=== PATIENT | male | born 1965 | race Caucasian/White ===

== ENCOUNTER → 2018-09-03 | Outpatient (CLI) | payer OTHER ==
--- NOTE | 2018-09-03 11:03 | PCVCIMAG ---
EXAM: ABDOMINAL ULTRASOUND COMPLETE INDICATION: Abdominal pain FINDINGS: Gallbladder: No gallstones. No wall thickening or abnormal pericholecystic fluid. Liver: Normal in size measuring 19.4 cm in length. No focal masses. Bile ducts: No intra or extra hepatic bile duct dilatation. The common bile duct measures 2.5 mm. Pancreas: Unremarkable where seen. Spleen: Normal in size measuring 13.1 cm in greatest dimension. No focal masses. Right kidney: No hydronephrosis. Length measures 13.6 cm. Left kidney: No hydronephrosis. Length measures 11.2 cm. Note is made the left kidney is located in the pelvis. Inferior vena cava: Normal in size where seen. Aorta: Normal in caliber where seen. IMPRESSION: No acute process seen in the abdomen. Left pelvic kidney. LOC:[id number]
--- NOTE | 2018-09-09 09:57 | PCVCIMAG ---
APPROVED REPORT Study performed: 09/03/2018 11:08:21 Exam: Stress Echocardiogram Indication: CAD , Hypertension, ETOH Patient Location: Echo lab Stress Nurse: Tamiko Quispe RN Status: routine Ht: 5 ft 8 in HR: 70 bpm BP: 130/86 mmHg Rhythm: NSR Medical History Medical History: Diabetes, Hyperlipidemia Procedure The patient underwent an Exercise Stress Test using the Guy Protocol. Blood pressure, heart rate, and EKG were monitored. An Echocardiogram was performed by science technicians in four stages in quad fashion. At peak stress, four selected images were obtained and placed side by side with resting images for comparison. Stress Test Details Stress Test: Exercise stress testing was performed using a Guy protocol. HR Resting HR: 70 bpmMax Heart Rate (APMHR): 165 bpm Max HR Achieved: 148 bpmTarget HR (85% APMHR): 140 bpm % of APMHR: 89 Recovery HR: 87 bpm HR response to stress: Normal HR response to stress BP Resting BP: 130/86 mmHg Max BP: 168/90 mmHg Recovery BP: 138/72 mmHg BP response to stress: Normal blood pressure response to stress. ECG Resting ECG: Sinus Rhythm Stress ECG: Sinus Rhythm ST Change: ST-T wave depression consistent with known RCA occlusion Maximum ST Deviation: 2.65 mm Arrhythmia: VPC's Recovery ECG: Sinus Rhythm Recovery ST Change: Significant ST-T wave depression consistent with known RCA occlusion Recovery ST Deviation: 0.9 mm Recovery Arrhythmia: VPC Clinical Reason for Termination: Maximal effort, Dyspnea Exercise duration: 7 min 10 sec Highest Stage Achieved: Stage 3: 3.4 mph at 14% grade. Exercise capacity: 10.10 METs Overall Exercise Capacity for Age: Normal Stress ECG Conclusion ECG: Ischemic Clinical: Ischemic Pre-Stress Echo The resting Echocardiogram showed normal left ventricular contractility with an estimated Ejection Fraction of about 50%. Distal septum and inferior wall hypokinesis consistent with known RCA occlusion. Post-Stress Echo The stress Echocardiogram showed normal left ventricular contractility with an estimated Ejection Fraction of about 50-55%. Septal and inferior wall remain hypokinetic. No new regional wall motion abnormalities. Conclusion Clinical Response: Ischemic Exercise Capacity: Average Stress ECG Response: Ischemic Stress Echo Images: Ischemic Other Information Study Quality: Adequate
== END | disposition home or self-care (01) ==
LOC: PCVCIMAG 10:00
PROVIDERS: ATTEND Internal Medicine Cardiovascular Disease
DX: R10.9 Unspecified abdominal pain (principal); F10.10 Alcohol abuse, uncomplicated
CPT/HCPCS: 76700; 93325; 93351

== ENCOUNTER → 2018-09-23 | Outpatient (CLI) | payer OTHER ==
--- NOTE | 2018-09-23 14:14 | PCVCIMAG ---
APPROVED REPORT Indications Stenosis PRE OP Risk Factors CAD Doppler Spectral Velocity Analysis PSV / EDVPSV / EDV ECA (R) 104 / 9 cm/sECA (L) 81 / 16 cm/s dICA (R) 46 / 14 cm/sdICA (L) 60 / 22 cm/s Melanie (R) 61 / 22 cm/smICA (L) 62 / 29 cm/s pICA (R) 64 / 22 cm/spICA (L) 56 / 18 cm/s Bulb (R) 52 / 17 cm/sBulb (L) 46 / 13 cm/s dCCA (R) 60 / 16 cm/sdCCA (L) 76 / 19 cm/s mCCA (R) 79 / 21 cm/smCCA (L) 78 / 22 cm/s Vert (R) 62 / 23 cm/sVert (L) 27 / 10 cm/s ICA/CCA 0.82 ICA/CCA 0.80 Basic Measurements Blood Pressure: Pulses: Right Left RightLeft Brachial(Sitting) 142/46ijAe762/84mmHgTemporal Real Time B-Mode Imaging Vert. (R)AntegradeVert. (L)Antegrade Findings RIGHT CAROTID: The carotid bulb has moderate plaque. The proximal internal carotid artery shows <40% stenosis. The common carotid artery shows no significant stenosis. The external carotid artery shows no significant stenosis. LEFT CAROTID: The carotid bulb has moderate plaque. The proximal internal carotid artery shows <40% stenosis. The common carotid artery shows no significant stenosis. The external carotid artery shows no significant stenosis. Conclusion <40% stenosis of the right internal carotid artery with moderate plaque. <40% stenosis of the left internal carotid artery with moderate plaque. No change since December 2015 study.
--- NOTE | 2018-09-23 14:55 | PCVCIMAG ---
APPROVED REPORT Study performed: 09/23/2018 13:39:35 EXAM: Comprehensive 2D, Doppler, and color-flow Echocardiogram Patient Location: Echo lab Status: routine BSA: 2.17 HR: 72 bpmBP: 142/90 mmHg Rhythm: NSR w/ PVCs Other Information Study Quality: Adequate Indications Abnormal ECG Pre-Op CAD ischemic cardiomyopathy 2D Dimensions IVSd: 11.26 (7-11mm) LVDd: 49.18 mm PWd: 8.86 (7-11mm)Ascending Ao: 34.50 (22-36mm) LVDs: 32.08 (25-40mm) Left Atrium: 47.31 (27-40mm) Aortic Root: 33.39 mm LV Single Plane 4CH: 52.20 % LV Single Plane 2CH: 53.79 % Biplane EF: 52.9 % Volumes Left Atrial Volume (Systole) Single Plane 4CH: 75.23 mLSingle Plane 2CH: 112.06 mL Aortic Valve AoV Peak Jerry.: 1.47 m/s AO Peak Gr.: 8.68 mmHgLVOT Max P.02 mmHg LVOT Max V: 1.03 m/s Mitral Valve E/A Ratio: 0.7 MV Decel. Time: 273.69 ms MV E Max Jerry.: 0.83 m/s MV A Jerry.: 1.14 m/s IVRT: 114.19 ms Pulmonary Valve PV Peak Jerry.: 1.00 m/sPV Peak Gr.: 3.99 mmHg Pulmonary Vein P Vein S: 0.29 m/sP Vein A: 0.39 m/s P Vein D: 0.40 m/sP Vein A Dur.: 138.4 msec P Vein S/D Ratio: 0.73 Tricuspid Valve TR Peak Jerry.: 2.54 m/s TR Peak Gr.: 25.81 mmHg Left Ventricle The left ventricle is normal size. Basal inferior hypokinesis. There is normal left ventricular wall thickness. Left ventricular systolic function is normal. The left ventricular ejection fraction is within the normal range. LVEF is 55%. Grade I - abnormal relaxation pattern. Right Ventricle The right ventricle is normal size. The right ventricular systolic function is normal. Atria Left atrium is moderately dilated. The right atrium size is normal. Aortic Valve The aortic valve is normal in structure. No aortic regurgitation is present. There is no aortic valvular stenosis. Mitral Valve The mitral valve is normal in structure. Mild mitral regurgitation. No evidence of mitral valve stenosis. Tricuspid Valve The tricuspid valve is normal in structure. Mild tricuspid regurgitation with PAP of 33 mmHg. Pulmonic Valve The pulmonary valve is normal in structure. There is no pulmonic valvular regurgitation. Great Vessels The aortic root is normal in size. IVC is normal in size and collapses >50% with inspiration. Pericardium There is no pericardial effusion. There is no pleural effusion. <Conclusion> The left ventricle is normal size. LVEF is 55%. Basal inferior hypokinesis. Grade I - abnormal relaxation pattern. The right ventricle is normal size. Left atrium is moderately dilated. The aortic valve is normal in structure. Mild mitral regurgitation. Mild tricuspid regurgitation with PAP of 33 mmHg. The aortic root is normal in size. There is no pericardial effusion.
== END | disposition home or self-care (01) ==
LOC: PCVCIMAG 13:08
PROVIDERS: ATTEND Internal Medicine Cardiovascular Disease
DX: Z01.818 Encounter for other preprocedural examination (principal); I65.23 Occlusion and stenosis of bilateral carotid arteries; I08.1 Rheumatic disorders of both mitral and tricuspid valves; I25.10 Atherosclerotic heart disease of native coronary artery without angina pectoris; I10 Essential (primary) hypertension; I25.5 Ischemic cardiomyopathy
CPT/HCPCS: 93306; 93880